=== PATIENT | male | born 1985 | race Caucasian/White ===

== ENCOUNTER 2017-10-14 20:14 | Emergency (ER) | payer MEDICAID, OTHER ==
[2017-10-14] MEDS ORDERED: Ketorolac INJ* 30 MG/ML 1 ML VIAL IV PUSH ONE (21:04)
[2017-10-14 21:29] LABS: ABS Basophils 0.1 10^3/ul (0-0.2); ABS Eosinophils 0.2 10^3/ul (0-0.6); ABS Lymphocytes 1.7 10^3/ul (1.0-4.8); ABS Monocytes 0.9 10^3/ul (0-0.8); ABS Neutrophils 8.6 10^3/ul (1.5-7.7); ABS Nucleated RBC 0 10^3/ul; Eosinophil % 1.4 % (0-6); Hematocrit 36 % (42-52); Hemoglobin 12.7 g/dl (14.0-18.0); Lymphocyte % 14.6 % (25-47); Mean Corpuscular HGB Conc 35 g/dl (31-36); Mean Corpuscular Hemoglobin 31 pg (27-31); Mean Corpuscular Volume 89 fL (80-94); Mean Platelet Volume 7 um3 (7.4-10.4); Nucleated Red Blood Cells % 0; Platelet Count 278 10^3/ul (150-450); Red Blood Count 4.05 10^6/ul (4.0-5.4); Red Cell Distribution Width 14 % (10.5-15); White Blood Count 11.4 10^3/ul (3.5-10.8)
[2017-10-14 21:40] LABS: EGFR Non-African American 126.2 (>60); INR 0.94 (0.77-1.02)
[2017-10-14] MEDS ORDERED: Clindamycin 600 MG IVPREMIX(* 600 MG/50 ML SDV IV ONE (21:50)
--- NOTE | 2017-10-14 22:21 | ED ---
Skin Complaint - HPI Summary HPI Summary: Patient here with painful abscess to right forearm. He admits to IV drug use which is most likely how he obtained this infection. Reports he was using a clean needle however he did not clean the skin prior to injecting. He also believes he missed the vein and injected into the tissue. He's had this discomfort for the past couple days. Denies fevers or chills but does report he just doesn't feel well in general. Denies nausea, vomiting, headache, chest pain, shortness of breath. He is able to move his wrist and elbow well without pain other than tugging in the area of induration over forearm. No previous history of MRSA or other skin infection/abscesses. He believes his tetanus is up-to-date. He would however like testing for HIV and hepatitis C as his girlfriend has the latter and the engaged in sexual intercourse as well as possibly needle sharing prior to his knowing of her diagnosis. He has been cautious with drug use and intercourse since. Does utilize nasal exchange program here in [place]. He is not on Suboxone orders have any interest. - History of Current Complaint Chief Complaint: EDRashSkinAbscess Time Seen by Provider: 10/14/17 20:40 Stated Complaint: RIGHT ARM ABSCESS Hx Obtained From: Patient, Family/Aperture Mask Etcher - pt's mom Pain Intensity: 9 - Allergy/Home Medications Allergies/Adverse Reactions: Allergies Allergy/AdvReac Type Severity Reaction Status Date / Time No Known Allergies Allergy Verified 10/14/17 20:27 PMH/Surg Hx/FS Hx/Imm Hx Previously Healthy: Yes Endocrine/Hematology History: Denies: Hx Anticoagulant Therapy, Hx Blood Disorders, Autoimmune Disease - Immunization History Date of Tetanus Vaccine: 2015 Immunizations Up to Date: Yes Infectious Disease History: No Infectious Disease History: Denies: Hx Human Immunodeficiency Virus (HIV), Hx of Known/Suspected MRSA, Traveled Outside the [place] in Last 30 Days - Family History Known Family History: Positive: None - Social History Lives: With Family Alcohol Use: None Hx Substance Use: Yes Substance Use Type: Reports: Cocaine, Heroin, Marijuana Hx Tobacco Use: Yes Smoking Status (MU): Current Every Day Smoker Review of Systems Positive: Fatigue - overall not feeling well Cardiovascular: Negative Negative: Chest Pain Respiratory: Negative Negative: Shortness Of Breath Gastrointestinal: Negative Negative: Vomiting, Nausea Positive: no symptoms reported Musculoskeletal: Negative Positive: Edema Skin: Other - Rt forearm infection/redness/swelling/pain Neurological: Negative Psychological: Normal All Other Systems Reviewed And Are Negative: Yes Physical Exam Triage Information Reviewed: Yes Vital Signs On Initial Exam: Initial Vitals Temp Pulse Resp BP Pulse Ox 98.6 F 72 16 122/80 97 10/14/17 20:20 10/14/17 20:20 10/14/17 20:20 10/14/17 20:20 10/14/17 20:20 Vital Signs Reviewed: Yes Appearance: Positive: Well-Appearing, Well-Nourished, Pain Distress - mild Skin: Positive: Warm, Skin Color Reflects Adequate Perfusion, Dry - indurated, shiny, tender and warm area of edema with erythema over Rt proximal ventral forearm Head/Face: Positive: Normal Head/Face Inspection Eyes: Positive: Normal, EOMI ENT: Positive: Hearing grossly normal Respiratory/Lung Sounds: Positive: Breath Sounds Present Cardiovascular: Positive: Normal, Pulses are Symmetrical in both Upper and Lower Extremities. Negative: Murmur, Rub Musculoskeletal: Positive: Normal, Strength/ROM Intact Neurological: Positive: Normal, Sensory/Motor Intact, Alert, Oriented to Person Place, Time, CN Intact II-III Psychiatric: Positive: Other - agitated but calm and cooperative Procedures - Incision and Drainage Anesthesia: Local, Lidocaine Instrument(s): Scalpel - #11 - seropurulent drainage emerged, limited pocket for packing, irrigated with sterile saline Packing: Gauze - 1/4" plain gauze placed - 2cm - sterile gauze and gauze wrapping applied - hemodynamically stable - pt tolerated well Diagnostics - Vital Signs Vital Signs Temp Pulse Resp BP Pulse Ox 10/14/17 20:20 98.6 F 72 16 122/80 97 - Laboratory Lab Results: Lab Results 10/14/17 10/14/17 10/14/17 Range/Units 21:12 21:12 21:12 WBC 11.4 H (3.5-10.8) 10^3/ul RBC 4.05 (4.0-5.4) 10^6/ul Hgb 12.7 L (14.0-18.0) g/dl Hct 36 L (42-52) % MCV 89 (80-94) fL MCH 31 (27-31) pg MCHC 35 (31-36) g/dl RDW 14 (10.5-15) % Plt Count 278 (150-450) 10^3/ul MPV 7 L (7.4-10.4) um3 Neut % (Auto) 75.7 (38-83) % Lymph % (Auto) 14.6 L (25-47) % [place] % (Auto) 7.7 H (0-7) % Eos % (Auto) 1.4 (0-6) % Baso % (Auto) 0.6 (0-2) % Absolute Neuts (auto) 8.6 H (1.5-7.7) 10^3/ul Absolute Lymphs (auto) 1.7 (1.0-4.8) 10^3/ul Absolute Monos (auto) 0.9 H (0-0.8) 10^3/ul Absolute Eos (auto) 0.2 (0-0.6) 10^3/ul Absolute Basos (auto) 0.1 (0-0.2) 10^3/ul Absolute Nucleated RBC 0 10^3/ul Nucleated RBC % 0 INR (Anticoag Therapy) 0.94 (0.77-1.02) APTT 33.2 (26.0-36.3) seconds Sodium 134 (133-145) mmol/L Potassium TNP Chloride 102 (101-111) mmol/L Carbon Dioxide 27 (22-32) mmol/L Anion Gap 5 (2-11) mmol/L BUN 17 (6-24) mg/dL Creatinine 0.73 (0.67-1.17) mg/dL Est GFR ( Amer) 162.2 (>60) Est GFR (Non-Af Amer) 126.2 (>60) BUN/Creatinine Ratio 23.3 H (8-20) Glucose 96 (70-100) mg/dL Lactic Acid (0.5-2.0) mmol/L Calcium 9.0 (8.6-10.3) mg/dL Total Bilirubin 0.30 (0.2-1.0) mg/dL AST TNP ALT 83 H (7-52) U/L Alkaline Phosphatase 45 (34-104) U/L C-Reactive Protein 18.20 H (< 5.00) mg/L Total Protein 6.5 (6.4-8.9) g/dL Albumin 3.7 (3.2-5.2) g/dL Globulin 2.8 (2-4) g/dL Albumin/Globulin Ratio 1.3 (1-3) // Range/Units 21:12 WBC (3.5-10.8) 10^3/ul RBC (4.0-5.4) 10^6/ul Hgb (14.0-18.0) g/dl Hct (42-52) % MCV (80-94) fL MCH (27-31) pg MCHC (31-36) g/dl RDW (10.5-15) % Plt Count (150-450) 10^3/ul MPV (7.4-10.4) um3 Neut % (Auto) (38-83) % Lymph % (Auto) (25-47) % [place] % (Auto) (0-7) % Eos % (Auto) (0-6) % Baso % (Auto) (0-2) % Absolute Neuts (auto) (1.5-7.7) 10^3/ul Absolute Lymphs (auto) (1.0-4.8) 10^3/ul Absolute Monos (auto) (0-0.8) 10^3/ul Absolute Eos (auto) (0-0.6) 10^3/ul Absolute Basos (auto) (0-0.2) 10^3/ul Absolute Nucleated RBC 10^3/ul Nucleated RBC % INR (Anticoag Therapy) (0.77-1.02) APTT (26.0-36.3) seconds Sodium (133-145) mmol/L Potassium Chloride (101-111) mmol/L Carbon Dioxide (22-32) mmol/L Anion Gap (2-11) mmol/L BUN (6-24) mg/dL Creatinine (0.67-1.17) mg/dL Est GFR ( Amer) (>60) Est GFR (Non-Af Amer) (>60) BUN/Creatinine Ratio (8-20) Glucose (70-100) mg/dL Lactic Acid 1.0 (0.5-2.0) mmol/L Calcium (8.6-10.3) mg/dL Total Bilirubin (0.2-1.0) mg/dL AST ALT (7-52) U/L Alkaline Phosphatase (34-104) U/L C-Reactive Protein (< 5.00) mg/L Total Protein (6.4-8.9) g/dL Albumin (3.2-5.2) g/dL Globulin (2-4) g/dL Albumin/Globulin Ratio (1-3) Result Diagrams: 10/14/17 21:12 10/14/17 21:59 Lab Statement: Any lab studies that have been ordered have been reviewed, and results considered in the medical decision making process. Re-Evaluation - Re-Evaluation First Eval Change: Improved Course/Dx - Course Course Of Treatment: Pt presents with abscess to right forearm status post IV drug use. He denies most constitutional symptoms however said he does not feel well in general and skin findings have been in place for couple days. Labs indicate mild infection and in conjunction with vitals he does not appear to be septic. Ultrasound does reveal some areas of fluid collection and so incision and drainage was performed. Seropurulent drainage was expressed and wound was minimally packed due to lack of larger pocket. Hemodynamically stable and dressing applied. Patient reports improvement in tightness initially with pain however he has more pain since procedurePercocet ordered an attempt to address pain as well as stave off withdrawal symptoms. Advised patient to complete clindamycin as prescribed and follow-up with needle exchange program for wound recheck on Monday. If he develops any danger signs or symptoms prior to that, he will return to the emergency department. Also discussed his HIV and hepatitis labs being ordered however results were not available yet this evening. He will receive a phone call once results are available. He requests that we contact his mother as he does not have a working phone number at this time. Mother reports she gave her phone number to registration a check in. - Diagnoses Provider Diagnoses: Abscess of right forearm, Contact with and (suspected) exposure to viral hepatitis, Screening for HIV (human immunodeficiency virus) Discharge - Discharge Plan Condition: Stable Disposition: HOME Prescriptions: Clindamycin HCl 300 mg PO Q8HR #28 capsule Ibuprofen TAB* [Motrin TAB* 800 MG] 800 mg PO Q8HR PRN #20 tab PRN Reason: Pain Patient Education Materials: Abscess (ED), Incision and Drainage (ED) Referrals: No Primary Care Phys,NOPCP [Primary Care Provider] - Additional Instructions: Keep dressing in place until Monday when provider may reassess the wound and change packing. Keep arm rested, elevated and apply heat to encourage further drainage. If he do not elevate your arm or attempting use it, you may encourage bleeding. If this occurs, apply fresh dressing and try not to remove packing - apply pressure and elevate for 20 minutes. If bleeding continues, return to the emergency department. Complete her antibiotics as directed. You were given a course of IV while here in the emergency department and one capsule to go to be taken at 6:00 tomorrow morning. The remaining prescription is at [facility] pick that up and completed as directed. You were also provided with 800 mg of ibuprofen for pain and swelling. Please take this with food as needed. If you develop fever, chills, vomiting, overall feeling of pain or weakness, return to the emergency department. Note: Your HIV and hepatitis test results will be called to you upon return. Specific HIV results may not be provided over the phone however fall tests are negative this will be relayed over the phone. He may also choose to follow-up with another care provider to review these results this week.
--- NOTE | 2017-10-14 22:37 | RAD ---
INDICATION: Right forearm cellulitis in an intravenous drug user COMPARISON: None TECHNIQUE: Real time ultrasound images of the right midforearm were acquired with cisneros scale and Doppler color flow imaging. FINDINGS: There is echogenic heterogeneity and thickening in the heterogeneous tissue overlying the right mid forearm. This collection measures approximately 3.6 x 2.3 x 1.8 cm. There is anechoic material mixed in with more echogenic material indicating partial fluid partially phlegmonous collection. IMPRESSION: Partially fluid, partially phlegmonous subcutaneous collection in the right forearm measuring 2.6 x 2.3 x 1.8 cm.
[2017-10-14] MEDS ORDERED: Clindamycin CAP* 150 MG PO ONE (23:44)
[2017-10-14] MEDS ORDERED: oxyCODONE/Acetamin 5/325 MG* TAB PO ONE (23:44)
[2017-10-15 01:00] VITALS: BP 139/77
--- NOTE | 2017-10-15 14:59 | PN ---
Progress Note - Progress Note Date of Service: 10/15/17 Note: lab called renée [facility] to inform about patient's wound culture results being + for group A Pyogenes and sometimes meaning it can be the cause of necrotizing faciitis. patient was seen yesterday by Silvia Harris PA had an abscess drained and placed on clindamycin. he is an IV drug user. is supposed to follow up tomorrow for recheck. spoke with patient's mother since patient did not currently have a working phone , and instructed to give us a call back to check on his status, how the wound is doing and be sure he has not developed new symptoms, also to make aware this infection can worsen quickly if not properly taken care of and closely monitored. given information for call back. no further action required until final culture results received and until patient is re-evaluated and calls back.
--- NOTE | 2017-10-17 09:32 | PN ---
Progress Note - Progress Note Date of Service: 10/17/17 Note: Patient placed on clindamycin was final culture shows is sensitive to. Patient also has hep C which attempted to call patient about. Patient was unable to be reached and mother was unable to be reached. Will send letter telling to call back to ED for results. Gave the paper to Latia garciark.
== END 2017-10-15 | disposition home or self-care (01) ==
LOC: ED 20:14
DX: L02.413 Cutaneous abscess of right upper limb (principal); Z20.5 Contact with and (suspected) exposure to viral hepatitis
CPT/HCPCS: 36415; 80053; 80074; 83605; 85025; 85610; 85730; 86140; 86703; 87040; 87070; 87077; 87184; 87186; 87205; 96374; 96375; 99283; A9270-GY; J1885

== ENCOUNTER 2021-10-06 11:54 | Inpatient (IN) ==
[2021-10-06] MEDS ORDERED: Vancomycin 1,000 MG in NS 0.9% 250 ml 250 ML IVPB ONE ×2 (12:40→17:05)
[2021-10-06] MEDS ORDERED: Morphine 4 MG/ML VIAL (1 ml) IV ONE (12:40)
[2021-10-06] MEDS ORDERED: Piperacillin/Tazobac ADVAN 3.375 GM in NS 0.9% 100 ml BAG 100 ML IV ONE (12:40)
[2021-10-06 13:47] LABS: ABS Lymphocytes 0.7 10^3/ul (1.0-4.8); ABS Monocytes 0.8 10^3/ul (0-0.8); ABS Neutrophils 12.3 10^3/ul (1.5-7.7); Eosinophil % 0.1 %; Hematocrit 39 % (42-52); Hemoglobin 13.3 g/dL (14.0-18.0); Lymphocyte % 5.3 %; Mean Corpuscular HGB Conc 35 g/dL (31-36); Mean Corpuscular Hemoglobin 30 pg (27-31); Mean Corpuscular Volume 88 fL (80-94); Mean Platelet Volume 7.3 fL (7.4-10.4); Platelet Count 204 10^3/uL (150-450); Red Blood Count 4.37 10^6 /uL (4.18-5.48); Red Cell Distribution Width 14 % (10-15); White Blood Count 13.9 10^3/uL (3.5-10.8)
[2021-10-06 14:07] LABS: Activated Partial Thrombo Time 32.5 seconds (26.0-38.0); INR 1.23 (0.86-1.15)
[2021-10-06 14:12] LABS: High Sens Troponin Baseline < 3 pg/mL (<20)
[2021-10-06] MEDS ORDERED: NS 0.9% 250 ml 0 ML ONE (14:23)
[2021-10-06 14:26] LABS: ALT 27 U/L (7-52); AST 30 U/L (13-39); Albumin 3.9 g/dL (3.2-5.2); Albumin/Globulin Ratio 1.6 (1-3); Alkaline Phosphatase 54 U/L (35-149); Anion Gap 5 mmol/L (2-11); Blood Urea Nitrogen 9 mg/dL (6-24); C Reactive Protein 159.93 mg/L (<8.01); CO2 Carbon Dioxide 29 mmol/L (22-32); Calcium 8.9 mg/dL (8.6-10.3); Chloride 97 mmol/L (101-111); Globulin 2.5 g/dL (2-4); Glucose 115 mg/dL (70-100); Potassium 4.1 mmol/L (3.5-5.0); Sodium 131 mmol/L (135-145); Total Protein 6.4 g/dL (6.4-8.9); eGFR CKD-EPI 134.9 (>60)
[2021-10-06 15:09] LABS: High Sensitivity Troponin 1 Hr < 3 pg/mL (<20)
[2021-10-06] MEDS ORDERED: Iohexol 300 (CONTRAST) 10 ML SDV IV ONE (15:30)
[2021-10-06 15:37] LABS: Erythrocyte Sed Rate 34 mm/Hr (0-14)
[2021-10-06] MEDS ORDERED: Zosyn per Pharmacy NOTE FOLLOW UP SCH (18:00)
[2021-10-06] MEDS ORDERED: Vancomycin per Pharmacy 1 EA NOTE FOLLOW UP SCH (18:00)
[2021-10-06] MEDS ORDERED: Piperacillin/Tazobac ADVAN 3.375 GM in NS 0.9% 100 ml BAG 100 ML IV SCH (18:30)
[2021-10-06] MEDS ORDERED: ZOSYN 3.375 GM x ONE DOSE over 30 miuntes IV (22:00)
[2021-10-07] MEDS: Vancomycin 1,250 MG in NS 0.9% 250 ml 250 ML IVPB SCH ×3 (01:41→15:24)
[2021-10-07] MEDS: Piperacillin/Tazobac ADVAN 3.375 GM in NS 0.9% 100 ml BAG 100 ML IV SCH ×3 (03:54→20:11)
[2021-10-07 05:55] LABS: ABS Lymphocytes 0.7 10^3/ul (1.0-4.8); ABS Monocytes 0.7 10^3/ul (0-0.8); ABS Neutrophils 8.9 10^3/ul (1.5-7.7); Eosinophil % 0.5 %; Hematocrit 38 % (42-52); Hemoglobin 13.3 g/dL (14.0-18.0); Lymphocyte % 7.1 %; Mean Corpuscular HGB Conc 35 g/dL (31-36); Mean Corpuscular Hemoglobin 30 pg (27-31); Mean Corpuscular Volume 87 fL (80-94); Mean Platelet Volume 7.1 fL (7.4-10.4); Nucleated Red Blood Cells % 0.1; Platelet Count 221 10^3/uL (150-450); Red Blood Count 4.43 10^6 /uL (4.18-5.48); Red Cell Distribution Width 14 % (10-15); White Blood Count 10.4 10^3/uL (3.5-10.8)
[2021-10-07 06:26] LABS: Calcium 8.7 mg/dL (8.6-10.3); Potassium 3.9 mmol/L (3.5-5.0); eGFR CKD-EPI 134.1 (>60)
[2021-10-07] MEDS: NS 0.9% 1000 ml BAG 1,000 ML IV SCH (07:32)
[2021-10-07] MEDS: Methadone ORALSYR CONC LIQ 10 MG/ML PO SCH (09:29)
[2021-10-07] MEDS ORDERED: Buffered Lidocaine 1% SYRIN 1 ml INTRADERM ONE (09:30)
[2021-10-07] MEDS ORDERED: Lactated Ringers 1000 ml BAG 1,000 ML IV SCH (10:00)
[2021-10-07] MEDS ORDERED: Lidocaine 2% PF 5 ML VIAL ONE (15:35)
[2021-10-07] MEDS ORDERED: Propofol 10 MG/ML 20 ML BTL ONE ×3 (15:35→17:01)
[2021-10-07] MEDS ORDERED: fentaNYL 250 mcg/5 ml 50 MCG/ML 5 ml VIAL (250 MCG) ONE (15:37)
[2021-10-07] MEDS ORDERED: Midazolam 2 mg/2 ml VIAL 1 mg/ml 2 ml VIAL (2 mg) ONE ×2 (15:37→17:00)
[2021-10-07] MEDS ORDERED: Bupivacaine 0.5% 50 ML MDV VIAL ONE (15:40)
[2021-10-07] MEDS ORDERED: fentaNYL 100 mcg/2 ml 50 MCG/ML VIAL ONE (17:00)
[2021-10-07] MEDS ORDERED: Ondansetron 4 mg VIAL 2 MG/ML 2 ml VIAL ONE (17:49)
[2021-10-07] MEDS ORDERED: Prochlorperazine 5 mg/ml 2 ml VIAL (10 mg) IV PRN (17:52)
[2021-10-07] MEDS ORDERED: Naloxone 0.4 mg VIAL 0.4 mg/ml 1 ml VIAL IV PRN (17:52)
[2021-10-07] MEDS ORDERED: HYDROmorphone 1 MG/1 ML SYRINGE ONE (19:10)
[2021-10-07] MEDS: HYDROmorphone 1 MG/1 ML SYRINGE IV PRN ×2 (19:13→19:23)
[2021-10-07] MEDS ORDERED: Prochlorperazine 5 mg/ml 2 ml VIAL (10 mg) ONE (19:20)
[2021-10-08] MEDS: Vancomycin 1,250 MG in NS 0.9% 250 ml 250 ML IVPB SCH ×4 (00:28→21:19)
[2021-10-08] MEDS ORDERED: NS 0.9% 100 ml BAG 100 ML ONE (03:18)
[2021-10-08] MEDS: Piperacillin/Tazobac ADVAN 3.375 GM in NS 0.9% 100 ml BAG 100 ML IV SCH ×2 (03:23→13:17)
[2021-10-08] MEDS ORDERED: Vancomycin Trough Check NOTE FOLLOW UP ONE (07:30)
[2021-10-08 07:35] LABS: ABS Lymphocytes 0.8 10^3/ul (1.0-4.8); ABS Monocytes 0.7 10^3/ul (0-0.8); ABS Neutrophils 9.9 10^3/ul (1.5-7.7); Eosinophil % 0.1 %; Hematocrit 35 % (42-52); Hemoglobin 11.9 g/dL (14.0-18.0); Lymphocyte % 7.2 %; Mean Corpuscular HGB Conc 34 g/dL (31-36); Mean Corpuscular Hemoglobin 30 pg (27-31); Mean Corpuscular Volume 88 fL (80-94); Mean Platelet Volume 6.8 fL (7.4-10.4); Platelet Count 250 10^3/uL (150-450); Red Cell Distribution Width 14 % (10-15); White Blood Count 11.4 10^3/uL (3.5-10.8)
[2021-10-08 08:22] LABS: Calcium 8.4 mg/dL (8.6-10.3); Potassium 3.9 mmol/L (3.5-5.0)
[2021-10-08] MEDS: Methadone ORALSYR CONC LIQ 10 MG/ML PO SCH (09:07)
[2021-10-08] MEDS: Morphine 10 MG/ML VIAL (1 ml) IV PRN ×2 (17:17→21:19)
[2021-10-08] MEDS ORDERED: Enoxaparin 40 MG/0.4 ML SYR SUBCUT SCH (20:00)
[2021-10-08] MEDS: NS 0.9% 1000 ml BAG 1,000 ML IV SCH (23:09)
[2021-10-09] MEDS: Vancomycin 1,250 MG in NS 0.9% 250 ml 250 ML IVPB SCH ×4 (02:57→21:38)
[2021-10-09] MEDS: Morphine 10 MG/ML VIAL (1 ml) IV PRN ×4 (03:14→21:39)
[2021-10-09] MEDS: NS 0.9% 1000 ml BAG 1,000 ML IV SCH ×3 (06:02→23:02)
[2021-10-09 06:28] LABS: ABS Eosinophils 0.1 10^3/ul (0-0.6); ABS Monocytes 0.5 10^3/ul (0-0.8); ABS Neutrophils 4.9 10^3/ul (1.5-7.7); Eosinophil % 1.9 %; Hematocrit 33 % (42-52); Hemoglobin 11.5 g/dL (14.0-18.0); Lymphocyte % 14.7 %; Mean Corpuscular HGB Conc 35 g/dL (31-36); Mean Corpuscular Hemoglobin 31 pg (27-31); Mean Corpuscular Volume 87 fL (80-94); Mean Platelet Volume 6.7 fL (7.4-10.4); Nucleated Red Blood Cells % 0.1; Platelet Count 244 10^3/uL (150-450); Red Blood Count 3.77 10^6 /uL (4.18-5.48); Red Cell Distribution Width 14 % (10-15); White Blood Count 6.5 10^3/uL (3.5-10.8)
[2021-10-09 06:51] LABS: Calcium 8.4 mg/dL (8.6-10.3); eGFR CKD-EPI 142.7 (>60)
[2021-10-09] MEDS: Calcium/Vitamin D TAB 250/125 TAB PO SCH ×2 (08:51→21:39)
[2021-10-09 10:37] LABS: C Reactive Protein 79.2 mg/L (<8.01)
[2021-10-09] MEDS: Methadone ORALSYR CONC LIQ 10 MG/ML PO SCH (10:59)
[2021-10-09] MEDS ORDERED: Lidocaine 1% MPF 5 ML VIAL INJ ONE (13:32)
[2021-10-10] MEDS: Vancomycin 1,250 MG in NS 0.9% 250 ml 250 ML IVPB SCH ×4 (03:46→21:05)
[2021-10-10 07:01] LABS: Hematocrit 35 % (42-52); Hemoglobin 12.1 g/dL (14.0-18.0); Mean Corpuscular HGB Conc 34 g/dL (31-36); Mean Corpuscular Hemoglobin 31 pg (27-31); Mean Corpuscular Volume 89 fL (80-94); Mean Platelet Volume 6.9 fL (7.4-10.4); Platelet Count 256 10^3/uL (150-450); Red Blood Count 3.96 10^6 /uL (4.18-5.48); Red Cell Distribution Width 14 % (10-15); White Blood Count 5.5 10^3/uL (3.5-10.8)
[2021-10-10 07:08] LABS: Calcium 8.5 mg/dL (8.6-10.3); Potassium 3.9 mmol/L (3.5-5.0)
[2021-10-10 07:14] LABS: eGFR CKD-EPI 138.1 (>60)
[2021-10-10] MEDS: Methadone ORALSYR CONC LIQ 10 MG/ML PO SCH (09:48)
[2021-10-10] MEDS: Calcium/Vitamin D TAB 250/125 TAB PO SCH ×2 (09:48→21:04)
[2021-10-10] MEDS: Morphine 10 MG/ML VIAL (1 ml) IV PRN ×2 (09:59→15:57)
[2021-10-10] MEDS: NS 0.9% 1000 ml BAG 1,000 ML IV SCH (10:01)
[2021-10-11] MEDS: Vancomycin 1,250 MG in NS 0.9% 250 ml 250 ML IVPB SCH ×3 (03:02→20:30)
[2021-10-11] MEDS: Morphine 10 MG/ML VIAL (1 ml) IV PRN ×3 (05:03→20:25)
[2021-10-11] MEDS ORDERED: Vancomycin Trough Check NOTE FOLLOW UP ONE (09:00)
[2021-10-11] MEDS: Calcium/Vitamin D TAB 250/125 TAB PO SCH ×2 (09:22→20:25)
[2021-10-11] MEDS: Methadone ORALSYR CONC LIQ 10 MG/ML PO SCH (09:23)
[2021-10-12 07:40] LABS: HIV 4th Generation Nonreactive (Nonreactive)
[2021-10-12 07:46] VITALS: BP 128/75
[2021-10-12] MEDS: Vancomycin 1,250 MG in NS 0.9% 250 ml 250 ML IVPB SCH (08:36)
[2021-10-12] MEDS: Calcium/Vitamin D TAB 250/125 TAB PO SCH (08:36)
[2021-10-12] MEDS: Morphine 10 MG/ML VIAL (1 ml) IV PRN (08:44)
[2021-10-12] MEDS: Methadone ORALSYR CONC LIQ 10 MG/ML PO SCH (09:05)
[2021-10-14] MEDS ORDERED: Vancomycin Trough Check NOTE FOLLOW UP ONE (08:30)
== END 2021-10-12 09:35 | disposition swing bed (61) | DRG 710 ==
LOC: ED 11:54 → EDHOLD 17:23 → SUATTDRO 17:23 → SSU 20:13 → MED 10-08 11:45
PROVIDERS: ADMIT Internal Medicine; ATTEND Internal Medicine

== ENCOUNTER 2021-10-12 11:40 | Inpatient (IN) ==
[2021-10-12] MEDS ORDERED: Ondansetron 4 mg VIAL 2 MG/ML 2 ml VIAL IV PRN (12:35)
[2021-10-12] MEDS ORDERED: NON FORMULARY MED (Vancomycin Per Pharmacy 1 NOTE) FOLLOW UP SCH (12:45)
[2021-10-12] MEDS ORDERED: Vancomycin per Pharmacy 1 EA NOTE FOLLOW UP PRN (13:24)
[2021-10-12] MEDS: Morphine 10 MG/ML VIAL (1 ml) IV PRN ×2 (13:48→19:57)
[2021-10-12] MEDS: Calcium/Vitamin D TAB 250/125 TAB PO SCH (19:56)
[2021-10-12] MEDS: Vancomycin 1,250 MG in NS 0.9% 250 ml 250 ML IVPB SCH (19:58)
[2021-10-13 06:53] LABS: ABS Eosinophils 0.1 10^3/ul (0-0.6); ABS Lymphocytes 1.5 10^3/ul (1.0-4.8); ABS Monocytes 0.4 10^3/ul (0-0.8); ABS Neutrophils 2.8 10^3/ul (1.5-7.7); Eosinophil % 1.8 %; Hematocrit 34 % (42-52); Hemoglobin 11.7 g/dL (14.0-18.0); Lymphocyte % 31.3 %; Mean Corpuscular HGB Conc 34 g/dL (31-36); Mean Corpuscular Hemoglobin 30 pg (27-31); Mean Corpuscular Volume 89 fL (80-94); Mean Platelet Volume 6.3 fL (7.4-10.4); Platelet Count 304 10^3/uL (150-450); Red Blood Count 3.86 10^6 /uL (4.18-5.48); Red Cell Distribution Width 14 % (10-15); White Blood Count 4.9 10^3/uL (3.5-10.8)
[2021-10-13 07:17] LABS: Calcium 8.7 mg/dL (8.6-10.3); Magnesium 1.8 mg/dL (1.9-2.7); Potassium 4.5 mmol/L (3.5-5.0); eGFR CKD-EPI 134.9 (>60)
[2021-10-13] MEDS: Vancomycin 1,250 MG in NS 0.9% 250 ml 250 ML IVPB SCH ×2 (10:08→20:32)
[2021-10-13] MEDS: Methadone ORALSYR CONC LIQ 10 MG/ML PO SCH (10:09)
[2021-10-13] MEDS: Calcium/Vitamin D TAB 250/125 TAB PO SCH ×2 (10:10→20:27)
[2021-10-13] MEDS: Morphine 10 MG/ML VIAL (1 ml) IV PRN ×3 (11:16→23:20)
[2021-10-14] MEDS ORDERED: Vancomycin Trough Check NOTE FOLLOW UP ONE (08:00)
[2021-10-14] MEDS: Calcium/Vitamin D TAB 250/125 TAB PO SCH ×2 (08:53→20:38)
[2021-10-14] MEDS: Morphine 10 MG/ML VIAL (1 ml) IV PRN ×3 (08:54→17:37)
[2021-10-14] MEDS: Methadone ORALSYR CONC LIQ 10 MG/ML PO SCH (08:54)
[2021-10-14 09:14] LABS: Vancomycin Trough 6.8 mcg/mL; eGFR CKD-EPI 134.1 (>60)
[2021-10-14] MEDS: Vancomycin 1,250 MG in NS 0.9% 250 ml 250 ML IVPB SCH ×2 (09:27→17:37)
[2021-10-15] MEDS: Vancomycin 1,250 MG in NS 0.9% 250 ml 250 ML IVPB SCH ×3 (00:48→17:30)
[2021-10-15] MEDS: Morphine 10 MG/ML VIAL (1 ml) IV PRN ×2 (00:58→09:58)
[2021-10-15] MEDS: Calcium/Vitamin D TAB 250/125 TAB PO SCH ×2 (09:57→20:30)
[2021-10-15] MEDS: Methadone ORALSYR CONC LIQ 10 MG/ML PO SCH (09:58)
[2021-10-15] MEDS: HYDROmorphone 1 MG/1 ML SYRINGE IV PRN (14:15)
[2021-10-16] MEDS: Vancomycin 1,250 MG in NS 0.9% 250 ml 250 ML IVPB SCH ×2 (01:39→12:06)
[2021-10-16] MEDS: HYDROmorphone 1 MG/1 ML SYRINGE IV PRN ×3 (01:45→22:30)
[2021-10-16] MEDS ORDERED: Vancomycin Trough Check NOTE FOLLOW UP ONE (09:30)
[2021-10-16] MEDS: Methadone ORALSYR CONC LIQ 10 MG/ML PO SCH (10:11)
[2021-10-16] MEDS: Calcium/Vitamin D TAB 250/125 TAB PO SCH ×2 (10:12→20:31)
[2021-10-16] MEDS: Vancomycin 1,500 MG in NS 0.9% 250 ml 250 ML IVPB SCH (20:32)
[2021-10-17] MEDS: Vancomycin 1,500 MG in NS 0.9% 250 ml 250 ML IVPB SCH ×3 (03:17→19:42)
[2021-10-17] MEDS: HYDROmorphone 1 MG/1 ML SYRINGE IV PRN ×3 (05:23→17:30)
[2021-10-17] MEDS: Calcium/Vitamin D TAB 250/125 TAB PO SCH ×2 (09:07→21:37)
[2021-10-17] MEDS: Methadone ORALSYR CONC LIQ 10 MG/ML PO SCH (09:23)
[2021-10-18] MEDS: HYDROmorphone 1 MG/1 ML SYRINGE IV PRN ×3 (03:33→18:26)
[2021-10-18] MEDS: Vancomycin 1,500 MG in NS 0.9% 250 ml 250 ML IVPB SCH ×3 (03:33→21:12)
[2021-10-18] MEDS ORDERED: Vancomycin Trough Check NOTE FOLLOW UP ONE (07:30)
[2021-10-18] MEDS: Methadone ORALSYR CONC LIQ 10 MG/ML PO SCH (09:04)
[2021-10-18] MEDS: Calcium/Vitamin D TAB 250/125 TAB PO SCH ×2 (09:05→21:09)
[2021-10-19 04:57] LABS: ABS Eosinophils 0.1 10^3/ul (0-0.6); ABS Lymphocytes 1.6 10^3/ul (1.0-4.8); ABS Monocytes 0.7 10^3/ul (0-0.8); ABS Neutrophils 5.6 10^3/ul (1.5-7.7); Eosinophil % 1.2 %; Hematocrit 41 % (42-52); Hemoglobin 13.9 g/dL (14.0-18.0); Lymphocyte % 19.4 %; Mean Corpuscular HGB Conc 34 g/dL (31-36); Mean Corpuscular Hemoglobin 30 pg (27-31); Mean Corpuscular Volume 89 fL (80-94); Mean Platelet Volume 6.3 fL (7.4-10.4); Nucleated Red Blood Cells % 0.1; Platelet Count 418 10^3/uL (150-450); Red Blood Count 4.63 10^6 /uL (4.18-5.48); Red Cell Distribution Width 15 % (10-15)
[2021-10-19 05:21] LABS: Albumin 4.2 g/dL (3.2-5.2); Albumin/Globulin Ratio 1.6 (1-3); C Reactive Protein 4.25 mg/L (<8.01); Calcium 9.8 mg/dL (8.6-10.3); Globulin 2.7 g/dL (2-4); Potassium 4.7 mmol/L (3.5-5.0); Total Bilirubin 0.3 mg/dL (0.2-1.0); Total Protein 6.9 g/dL (6.4-8.9); eGFR CKD-EPI 125.1 (>60)
[2021-10-19] MEDS: Calcium/Vitamin D TAB 250/125 TAB PO SCH ×2 (08:44→20:46)
[2021-10-19] MEDS: Vancomycin 1,500 MG in NS 0.9% 250 ml 250 ML IVPB SCH ×2 (08:46→20:49)
[2021-10-19] MEDS: Methadone ORALSYR CONC LIQ 10 MG/ML PO SCH (09:08)
[2021-10-20] MEDS: Calcium/Vitamin D TAB 250/125 TAB PO SCH ×2 (08:24→21:31)
[2021-10-20] MEDS: Vancomycin 1,500 MG in NS 0.9% 250 ml 250 ML IVPB SCH ×2 (08:26→21:16)
[2021-10-20] MEDS: Methadone ORALSYR CONC LIQ 10 MG/ML PO SCH (08:26)
[2021-10-21 02:43] VITALS: BP 150/80
[2021-10-21] MEDS: Calcium/Vitamin D TAB 250/125 TAB PO SCH (09:38)
[2021-10-21] MEDS: Methadone ORALSYR CONC LIQ 10 MG/ML PO SCH (09:41)
[2021-10-21 10:33] LABS: ALT 61 U/L (7-52); AST 38 U/L (13-39); Albumin 4.1 g/dL (3.2-5.2); Albumin/Globulin Ratio 1.5 (1-3); Alkaline Phosphatase 52 U/L (35-149); Anion Gap 5 mmol/L (2-11); Blood Urea Nitrogen 19 mg/dL (6-24); CO2 Carbon Dioxide 32 mmol/L (22-32); Calcium 9.5 mg/dL (8.6-10.3); Chloride 100 mmol/L (101-111); Globulin 2.8 g/dL (2-4); Glucose 109 mg/dL (70-100); Potassium 3.9 mmol/L (3.5-5.0); Sodium 137 mmol/L (135-145); Total Protein 6.9 g/dL (6.4-8.9); eGFR CKD-EPI 123.5 (>60)
[2021-10-21] MEDS: Vancomycin 1,500 MG in NS 0.9% 250 ml 250 ML IVPB SCH (10:43)
[2021-10-22] MEDS ORDERED: Vancomycin Trough Check NOTE FOLLOW UP ONE (08:30)
== END 2021-10-21 14:45 | disposition home or self-care (01) | DRG 383 ==
LOC: MED 11:40 → SUATTDRO 11:40
PROVIDERS: ADMIT Hospitalist; ATTEND Internal Medicine

== ENCOUNTER 2023-06-13 01:22 | Inpatient (IN) ==
[2023-06-13] MEDS ORDERED: cefTRIAXone 2 gm/50 mL D5W 2 GM/50 ML BAG IV ONE (02:10)
[2023-06-13] MEDS ORDERED: Lactated Ringers 1000 ml BAG 1,000 ML IV ONE (02:13)
[2023-06-13 02:57] LABS: Hematocrit 35.4 % (38-53); Hemoglobin 12.1 g/dL (13.2-16.3); Mean Corpuscular Hemoglobin 28.8 pg (27-33); Mean Corpuscular Hgb Conc 34.4 g/dL (31-36); Mean Corpuscular Volume 83.7 fL (80-97); Mean Platelet Volume 6.9 fL (7.5-11.2); Platelet Count 169 10^3/uL (150-450); Red Blood Count 4.22 10^6/uL (4.06-5.63); Red Cell Distribution Width 14.2 % (12-17); White Blood Count 32.1 10^3/uL (3.6-10.2)
[2023-06-13] MEDS ORDERED: Vancomycin 1,250 MG in NS 0.9% 250 ml 250 ML IVPB ONE (03:00)
[2023-06-13 03:13] LABS: Albumin 3.7 g/dL (3.2-5.2); Albumin/Globulin Ratio 1.1 (1-3); C Reactive Protein 212.05 mg/L (<8.01); Calcium 8.9 mg/dL (8.6-10.3); Creatinine, Serum 0.63 mg/dL (0.67-1.17); Globulin 3.3 g/dL (2-4); Potassium 3.2 mmol/L (3.5-5.0); Total Bilirubin 0.5 mg/dL (0.2-1.0); eGFR CKD-EPI 126.4 (>60)
[2023-06-13 03:16] LABS: Activated Partial Thrombo Time 32.7 seconds (26.0-38.0); INR 1.18 (0.83-1.13)
[2023-06-13 03:25] LABS: ABS Eosinophils 0.1 10^3/uL (0.0-0.5); ABS Lymphocytes 1.4 10^3/uL (1.0-4.8); ABS Monocytes 1.9 10^3/uL (0.0-1.1); ABS Neutrophils 28.6 10^3/uL (1.5-7.6); Eosinophil % 0.4 %; Lymphocyte % 4.3 %
[2023-06-13] MEDS ORDERED: Iohexol 300 (CONTRAST) 10 ML SDV IV ONE (04:47)
[2023-06-13] MEDS ORDERED: Ondansetron 4 mg VIAL 2 MG/ML 2 ml VIAL IV PRN (09:51)
[2023-06-13] MEDS: Lactated Ringers 1000 ml BAG 1,000 ML IV ONE ×2 (09:54→17:24)
[2023-06-13] MEDS ORDERED: Vancomycin per Pharmacy 1 EA NOTE FOLLOW UP SCH (10:00)
[2023-06-13] MEDS ORDERED: Acetaminophen IV 1 GM/100ML 1,000 MG/100 ML BAG IV ONE ×2 (10:09→14:51)
[2023-06-13 10:22] LABS: Magnesium 1.7 mg/dL (1.9-2.7)
[2023-06-13] MEDS ORDERED: Cefepime 2 GM in Dextrose 2 GM/50 ML BAG IV SCH ×2 (11:00→23:00)
[2023-06-13] MEDS: KCL 20 MEQ/100 ML IVPREMIX 20 MEQ/100 ML BAG IV SCH ×3 (11:31→20:53)
[2023-06-13] MEDS ORDERED: Vancomycin Trough Check NOTE FOLLOW UP ONE (12:30)
[2023-06-13] MEDS ORDERED: Propofol 10 MG/ML 20 ML BTL ONE (13:21)
[2023-06-13] MEDS ORDERED: Lidocaine 2% PF 5 ML VIAL ONE (13:21)
[2023-06-13] MEDS ORDERED: Succinylcholine 200 mg VIAL 20 mg/ml 10 ml VIAL (200 mg) ONE (13:21)
[2023-06-13] MEDS ORDERED: fentaNYL 250 mcg/5 ml 50 MCG/ML 5 ml VIAL (250 MCG) ONE (13:22)
[2023-06-13] MEDS ORDERED: Midazolam 5 mg/5 ml VIAL 1 mg/ml 5 ml VIAL (5 mg) ONE (13:22)
[2023-06-13] MEDS ORDERED: Lidocaine 1% w EPI 1:100,000 MDV 20 ML VIAL ONE (13:48)
[2023-06-13] MEDS ORDERED: Dexamethasone IV 4 MG/ML VIAL 1 ml VIAL ONE (14:35)
[2023-06-13] MEDS ORDERED: Ondansetron 4 mg VIAL 2 MG/ML 2 ml VIAL ONE (14:35)
[2023-06-13] MEDS ORDERED: Naloxone 0.4 mg VIAL 0.4 mg/ml 1 ml VIAL IV PUSH PRN (16:36)
[2023-06-13] MEDS: HYDROmorphone 1 MG/1 ML SYRINGE IV PRN (17:19)
[2023-06-13] MEDS: metroNIDAZOLE IV 500 MG/100ML 500 MG/100 ML BAG IVPB SCH (18:24)
[2023-06-13] MEDS: Vancomycin 1,250 MG in NS 0.9% 250 ml 250 ML IVPB SCH ×3 (19:18→20:38)
[2023-06-13] MEDS: Acetaminophen IV 1 GM/100ML 1,000 MG/100 ML BAG IV SCH (19:51)
[2023-06-13] MEDS: Senna TAB 8.6 mg TAB PO SCH (20:39)
[2023-06-13] MEDS: Cefepime 2 GM in Dextrose 2 GM/50 ML BAG IV SCH (22:42)
[2023-06-14] MEDS: metroNIDAZOLE IV 500 MG/100ML 500 MG/100 ML BAG IVPB SCH ×2 (00:41→09:02)
[2023-06-14] MEDS: Acetaminophen IV 1 GM/100ML 1,000 MG/100 ML BAG IV SCH ×3 (02:14→19:07)
[2023-06-14] MEDS: Vancomycin 1,250 MG in NS 0.9% 250 ml 250 ML IVPB SCH ×3 (03:09→20:05)
[2023-06-14] MEDS ORDERED: cefTRIAXone 1 gm/50 mL D5W 1 GM/50 ML BAG IV SCH (09:00)
[2023-06-14] MEDS: HYDROmorphone 1 MG/1 ML SYRINGE IV PRN ×4 (10:29→20:40)
[2023-06-14 11:15] LABS: Albumin 3.1 g/dL (3.2-5.2); Albumin/Globulin Ratio 1.2 (1-3); Calcium 8.5 mg/dL (8.6-10.3); Creatinine, Serum 0.54 mg/dL (0.67-1.17); Globulin 2.6 g/dL (2-4); Magnesium 1.7 mg/dL (1.9-2.7); Potassium 3.8 mmol/L (3.5-5.0); Total Bilirubin 0.2 mg/dL (0.2-1.0); Total Protein 5.7 g/dL (6.4-8.9); eGFR CKD-EPI 132.5 (>60)
[2023-06-14] MEDS: Enoxaparin 40 MG/0.4 ML SYR SUBCUT SCH (11:15)
[2023-06-14] MEDS: Polyethylene Glycol 3350 17 GM PACKET PO SCH (11:16)
[2023-06-14 11:27] LABS: Hematocrit 33.2 % (38-53); Hemoglobin 11.2 g/dL (13.2-16.3); Mean Corpuscular Hemoglobin 28.5 pg (27-33); Mean Corpuscular Hgb Conc 33.9 g/dL (31-36); Mean Corpuscular Volume 84.1 fL (80-97); Mean Platelet Volume 7.1 fL (7.5-11.2); Platelet Count 214 10^3/uL (150-450); Red Blood Count 3.94 10^6/uL (4.06-5.63); Red Cell Distribution Width 14.2 % (12-17); White Blood Count 30.3 10^3/uL (3.6-10.2)
[2023-06-14] MEDS: Cefepime 2 GM in Dextrose 2 GM/50 ML BAG IV SCH (13:14)
[2023-06-14 13:52] LABS: ABS Lymphocytes 0.9 10^3/uL (1.0-4.8); ABS Monocytes 0.6 10^3/uL (0.0-1.1); ABS Neutrophils 28.7 10^3/uL (1.5-7.6); Eosinophil % 0.1 %; Lymphocyte % 3.1 %
[2023-06-14] MEDS ORDERED: Magnesium Sulfate 2 gm BAG 2 GM/50 ML BAG IVPB ONE (14:29)
[2023-06-14] MEDS ORDERED: Potassium Chlor 20 meq TAB.ER PO ONE (14:45)
[2023-06-14 15:15] LABS: Urine Benzodiazepine Screen Presumptive Positive (None Detect); Urine Cannabinoids Screen Presumptive Positive (None Detect); Urine Opiates Screen Presumptive Positive (None Detect)
[2023-06-14] MEDS ORDERED: LORazepam 2 mg VIAL 1 ml IV PUSH PRN (15:51)
[2023-06-14] MEDS ORDERED: Lorazepam PYXIS KEY PRN (15:51)
[2023-06-14] MEDS ORDERED: Vancomycin Trough Check NOTE FOLLOW UP ONE (17:30)
[2023-06-14] MEDS: Senna TAB 8.6 mg TAB PO SCH (20:42)
[2023-06-15] MEDS: Acetaminophen IV 1 GM/100ML 1,000 MG/100 ML BAG IV SCH (02:11)
[2023-06-15] MEDS: HYDROmorphone 1 MG/1 ML SYRINGE IV PRN (03:52)
[2023-06-15] MEDS: Vancomycin 1,500 MG in NS 0.9% 250 ml 250 ML IVPB SCH ×3 (03:55→20:04)
[2023-06-15] MEDS: Enoxaparin 40 MG/0.4 ML SYR SUBCUT SCH (09:29)
[2023-06-15] MEDS: Polyethylene Glycol 3350 17 GM PACKET PO SCH (09:29)
[2023-06-15] MEDS: Nicotine PATCH 14 MG/24 HR PATCH TRANSDERM SCH (09:51)
[2023-06-15] MEDS: HYDROmorphone 1 MG/1 ML SYRINGE IV SCH ×3 (10:01→22:07)
[2023-06-15 11:22] LABS: Hematocrit 33.3 % (38-53); Hemoglobin 11.4 g/dL (13.2-16.3); Mean Corpuscular Hemoglobin 28.8 pg (27-33); Mean Corpuscular Hgb Conc 34.3 g/dL (31-36); Mean Platelet Volume 6.7 fL (7.5-11.2); Platelet Count 251 10^3/uL (150-450); Red Blood Count 3.96 10^6/uL (4.06-5.63); Red Cell Distribution Width 14.2 % (12-17); White Blood Count 12.6 10^3/uL (3.6-10.2)
[2023-06-15 11:40] LABS: Calcium 8.7 mg/dL (8.6-10.3); Creatinine, Serum 0.54 mg/dL (0.67-1.17); Magnesium 1.6 mg/dL (1.9-2.7); eGFR CKD-EPI 132.5 (>60)
[2023-06-15] MEDS ORDERED: Magnesium Sulfate 2 gm BAG 2 GM/50 ML BAG IVPB ONE (12:38)
[2023-06-15 13:14] LABS: ABS Eosinophils 0.1 10^3/uL (0.0-0.5); ABS Lymphocytes 1.3 10^3/uL (1.0-4.8); ABS Monocytes 0.6 10^3/uL (0.0-1.1); ABS Neutrophils 10.6 10^3/uL (1.5-7.6); Eosinophil % 0.5 %; Lymphocyte % 10.4 %
[2023-06-15] MEDS ORDERED: Magnesium Sulfate IV 1GM/100ML 1 GM/100 ML BAG IV ONE (14:38)
[2023-06-15] MEDS: Bacitracin OINTMENT TUBE TOPICAL SCH (16:55)
[2023-06-15] MEDS: Senna TAB 8.6 mg TAB PO SCH (20:07)
[2023-06-16] MEDS: Vancomycin 1,500 MG in NS 0.9% 250 ml 250 ML IVPB SCH ×2 (04:08→12:09)
[2023-06-16] MEDS: HYDROmorphone 1 MG/1 ML SYRINGE IV SCH ×2 (04:34→10:42)
[2023-06-16] MEDS: Nicotine PATCH 14 MG/24 HR PATCH TRANSDERM SCH (09:31)
[2023-06-16] MEDS: Enoxaparin 40 MG/0.4 ML SYR SUBCUT SCH (10:21)
[2023-06-16] MEDS: Polyethylene Glycol 3350 17 GM PACKET PO SCH (10:22)
[2023-06-16] MEDS: Bacitracin OINTMENT TUBE TOPICAL SCH (10:42)
[2023-06-16 11:15] VITALS: BP 164/70
[2023-06-16] MEDS ORDERED: Vancomycin Trough Check NOTE FOLLOW UP ONE (11:30)
[2023-06-16] MEDS ORDERED: HYDROmorphone 1 MG/1 ML SYRINGE IV SCH (12:00)
[2023-06-16 12:23] LABS: Creatinine, Serum 0.48 mg/dL (0.67-1.17); eGFR CKD-EPI 137.2 (>60)
[2023-06-16 12:30] LABS: Calcium 8.9 mg/dL (8.6-10.3); Creatinine, Serum 0.48 mg/dL (0.67-1.17); Magnesium 1.7 mg/dL (1.9-2.7); Potassium 4.1 mmol/L (3.5-5.0); Vancomycin Trough 4.8 mcg/mL; eGFR CKD-EPI 137.2 (>60)
[2023-06-16 13:00] LABS: Hematocrit 35.8 % (38-53); Hemoglobin 12.4 g/dL (13.2-16.3); Mean Corpuscular Hemoglobin 28.9 pg (27-33); Mean Corpuscular Hgb Conc 34.7 g/dL (31-36); Mean Corpuscular Volume 83.3 fL (80-97); Mean Platelet Volume 6.7 fL (7.5-11.2); Platelet Count 318 10^3/uL (150-450); Red Cell Distribution Width 13.9 % (12-17); White Blood Count 11.4 10^3/uL (3.6-10.2)
[2023-06-16 15:43] LABS: ABS Eosinophils 0.1 10^3/uL (0.0-0.5); ABS Lymphocytes 1.7 10^3/uL (1.0-4.8); ABS Monocytes 0.8 10^3/uL (0.0-1.1); ABS Neutrophils 8.7 10^3/uL (1.5-7.6); ABS Nucleated RBC 0.01 10^3/ul; Eosinophil % 0.9 %; Lymphocyte % 15.1 %
[2023-06-17] MEDS ORDERED: Vancomycin Trough Check NOTE FOLLOW UP ONE (11:30)
== END 2023-06-16 15:20 | disposition home or self-care (01) | DRG 364 ==
LOC: EDHOLD 01:22 → ED 01:22 → SUATTDRO 08:35 → OBSVTOIN 08:35 → MED 11:07
PROVIDERS: ADMIT Internal Medicine; ATTEND Hospitalist

== ENCOUNTER 2023-10-05 02:17 | Observation (INO) ==
[2023-10-05] MEDS ORDERED: Morphine 4 MG/ML VIAL (1 ml) ONE (03:34)
[2023-10-05] MEDS: Morphine 4 MG/ML VIAL (1 ml) IV ONE ×2 (03:37→16:24)
[2023-10-05 03:46] LABS: ABS Eosinophils 0.1 10^3/uL (0.0-0.5); ABS Lymphocytes 1.3 10^3/uL (1.0-4.8); ABS Monocytes 1.2 10^3/uL (0.0-1.1); ABS Neutrophils 8.6 10^3/uL (1.5-7.6); Hematocrit 35.1 % (38-53); Hemoglobin 12.1 g/dL (13.2-16.3); Lymphocyte % 11.9 %; Mean Corpuscular Hemoglobin 29.4 pg (27-33); Mean Corpuscular Hgb Conc 34.5 g/dL (31-36); Mean Corpuscular Volume 85.1 fL (80-97); Mean Platelet Volume 6.7 fL (7.5-11.2); Platelet Count 226 10^3/uL (150-450); Red Blood Count 4.12 10^6/uL (4.06-5.63); Red Cell Distribution Width 14.3 % (12-17); White Blood Count 11.3 10^3/uL (3.6-10.2)
[2023-10-05 04:35] LABS: Albumin/Globulin Ratio 1.5 (1-3); C Reactive Protein 65.31 mg/L (<8.01); Calcium 9.1 mg/dL (8.6-10.3); Creatinine, Serum 0.64 mg/dL (0.67-1.17); Globulin 2.7 g/dL (2-4); Potassium 3.9 mmol/L (3.5-5.0); Total Bilirubin 0.3 mg/dL (0.2-1.0); Total Protein 6.7 g/dL (6.4-8.9); eGFR CKD-EPI 125.8 (>60)
[2023-10-05] MEDS: Clindamycin 600 MG/D5W BAG 600 MG/50 ML BAG IV ONE (06:35)
[2023-10-05] MEDS: Iohexol 300 (CONTRAST) 10 ML SDV IV ONE (09:39)
[2023-10-05] MEDS: Vancomycin 1,500 MG in NS 0.9% 250 ml 250 ML IVPB ONE (09:42)
[2023-10-05] MEDS: Lactated Ringers 1000 ml BAG 1,000 ML IV ONE (10:23)
[2023-10-05] MEDS ORDERED: HYDROmorphone 0.5 MG/0.5 ML SYRINGE IV SLOW PU PRN (10:39)
[2023-10-05] MEDS ORDERED: Vancomycin per Pharmacy 1 EA NOTE FOLLOW UP SCH (11:00)
[2023-10-05] MEDS ORDERED: Zosyn per Pharmacy NOTE FOLLOW UP SCH (11:00)
[2023-10-05] MEDS ORDERED: Ondansetron 4 mg VIAL 2 MG/ML 2 ml VIAL IV PRN (11:11)
[2023-10-05] MEDS: Piperacillin/Tazobac 3.375 BAG 3.375 GM/100 ML BAG IV ONE (11:21)
[2023-10-05] MEDS: methylPREDNISolone SOD SUCC 40 mg/ml 1 ml VIAL IV ONE (13:19)
[2023-10-05] MEDS ORDERED: ZOSYN 3.375 GM Q8H per EXTENDED INFUSION IV SCH (15:30)
[2023-10-05] MEDS: ZOSYN 3.375 GM Q8H per EXTENDED INFUSION IV SCH (16:24)
[2023-10-05] MEDS ORDERED: Vancomycin 1,250 MG in NS 0.9% 250 ml 250 ML IVPB SCH (18:00)
[2023-10-05] MEDS: HYDROmorphone 1 MG/1 ML SYRINGE IV SLOW PU PRN (20:30)
[2023-10-05] MEDS: methylPREDNISolone SOD SUCC 40 mg/ml 1 ml VIAL IV SCH (22:30)
[2023-10-05] MEDS: Vancomycin 1,250 MG in NS 0.9% 250 ml 250 ML IVPB SCH (22:30)
[2023-10-06] MEDS: Lactated Ringers 1000 ml BAG 1,000 ML IV SCH (01:25)
[2023-10-06] MEDS: NS 0.9% 1000 ml BAG 1,000 ML IV SCH (01:33)
[2023-10-06] MEDS: Vancomycin Trough Check NOTE FOLLOW UP ONE (11:34)
[2023-10-07 05:50] VITALS: BP 129/79
[2023-10-07] MEDS ORDERED: Vancomycin Trough Check NOTE FOLLOW UP ONE (09:30)
== END 2023-10-07 11:00 | disposition home or self-care (01) ==
LOC: ED 02:17 → EDHOLD 02:17 → MED 14:39
PROVIDERS: ADMIT Internal Medicine; ATTEND Internal Medicine